=== PATIENT | female | born 1965 | race Caucasian/White ===

== ENCOUNTER 2019-10-09 04:22 | Emergency (ER) | payer OTHER, SELFPAY ==
[2019-10-09 04:23] VITALS: BP 142/79; PULSE 96; RESP 18; TEMP 36.4; O2SAT 97; BMI 24.7
[2019-10-09] MEDS: Tetracaine 0.5% Ophthalmic Bottle 1 DRP LEFT EYE (04:45)
--- NOTE | 2019-10-09 04:55 | ED.VIS.GEN ---
History of Present Illness Chief Complaint: Eye Problem Narrative: 54-year-old female presents with concern for left eye pain. States that she was seen at [facility] yesterday and diagnosed with left corneal abrasion. The economics professor placed a contact lens over the eye. States that she has had worsening irritation this evening. States it is painful. Denies any acute change in vision, fever, chills. Past Medical History - Allergies and Home Meds Allergies/Adverse Reactions: Allergies cefuroxime [From Ceftin] Allergy (Verified 10/09/19 04:27) Anaphylaxis clarithromycin [From Biaxin] Allergy (Verified 10/09/19 04:27) Anaphylaxis Primary Care Physician: NOT,DEFINED [Primary Care Provider] - Past Medical History: None Surgical History: noncontributory Smoking Status: Current every day smoker Alcohol: None Drugs: None Review of Systems General: Denies: Chills, Fever, Sweats Eyes: Reports: - - left eye pain. Denies: Visual changes - bilaterally, Diplopia ENT: Denies: Rhinorrhea, Sore throat Cardiovascular: Denies: Chest pain, Palpitations Respiratory: Denies: Dyspnea, Cough, Dyspnea on exertion Gastrointestinal: Denies: Abdominal pain, Nausea, Vomiting, Diarrhea, Melena, Hematochezia Genitourinary: Denies: Dysuria, Hematuria, Frequency Musculoskeletal: Denies: Back pain, Extremity Pain Skin: Denies: Rash, Wounds Neurological: Denies: Headache, Weakness, Numbness Physical Exam Vital Signs/Narrative: Vital Signs Temp Pulse Resp BP Pulse Ox 10/09/19 04:23 97.6 F L 96 18 142/79 H 97 Inital Vital Signs reviewed: Yes General: Well nourished, Well developed, No Acute Distress Head: Normocephalic, Atraumatic Eyes: Perrl, EOMI, - - Conjunctivo-very erythematous. Does appear to be possible lens in place. Cannot visualize the outer edge. ENT: Moist mucous membranes, No rhinorrhea Neck: Supple, Nontender Cardiovascular: Regular rate, Regular rhythm, No murmurs Respiratory: No distress, CTA bilaterally, Chest nontender Abdomen: Soft, Nontender, Nondistended, Normal bowel sounds Back: Nontender, Normal Inspection Extremities: Nontender, No edema Skin: Normal color, No rash Neurological: Alert, Oriented x3, Cranial nerves II-XII grossly intact, Normal Strength, Normal Sensation Psychological: Normal affect, Normal Mood Diagnostic/Tx/Re-eval - Medical Decision Making Appears well and nontoxic. Vital signs within normal limits. I examined with the slit lamp. Cannot identify outer edge. Patient was given tetracaine drops which did resolve her pain. Wet Q-tip was used to try to remove the lens. Unsuccessful. Concerned given inability to visualize the edge of the lens that I do not want to continue with more invasive attempts at removal. Fluorescein was placed but there was not significant uptake given the lens. Patient will be given the tetracaine to use for the next 2 hours given she has an appointment early this morning. Advised on very minimal use. Asked to return for any new or worsening symptoms. Patient agreeable and discharged home in stable condition. ED Disposition - Plan for ED Patient: Disposition: Home or Assisted Living Diagnosis: Corneal abrasion Instructions: Corneal Injury Additional Instructions: Please go to appointment at [facility] at [phone].
== END 2019-10-09 05:24 | disposition home or self-care (01) ==
PROVIDERS: Emergency Provider Emergency Medicine
DX: S05.02XA Injury of conjunctiva and corneal abrasion without foreign body, left eye, initial encounter (principal); X58.XXXA Exposure to other specified factors, initial encounter; Y93.9 Activity, unspecified; Y92.9 Unspecified place or not applicable; F17.200 Nicotine dependence, unspecified, uncomplicated
CPT/HCPCS: 99282; A4216

== ENCOUNTER → 2019-10-27 | Outpatient (CLI) | payer OTHER, SELFPAY ==
[2019-10-09 04:23] VITALS: BMI 24.7
== END | disposition home or self-care (01) ==
LOC: LABSPEC 10-28 08:29
PROVIDERS: Referring Provider Surgery; Visit Provider Surgery
DX: E04.1 Nontoxic single thyroid nodule (principal)

== ENCOUNTER → 2019-10-28 | Outpatient (CLI) | payer OTHER, SELFPAY ==
[2019-10-09 04:23] VITALS: BMI 24.7
--- NOTE | 2019-10-27 | FLU_PTH ---
PATIENT: NACHO PENGCCVenkatesh #:[id number] LOC: [facility]#:[id number] AGE/SX: 54/F ROOM: RE10/28/[address]: Dr. Sade Mariano MD : [id number] BED: DIS: 10/28/2019 SPEC #: [id number] RECD: 10/28/19 14:58 STATUS: NAVI MARCIA #: [id number] BILLIE: 10/27/19 00:[address]: Sade Mariano DEPT: CYTOLOGY RECD BY: Joce Sadler ENTERED: 10/28/19 14:58 SP TYPE: Fluid OTHR DR: No Primary Care Phys Tissues: A - Thyroid gland, NOS B - Thyroid gland, NOS Procedures: Special Stain Group II Surgery Specimen Level IV Cytospin Fluid HEADER OPERATION: Left thyroid FNA PRE-OP DIAGNOSIS: Left thyroid nodule TISSUE SUBMITTED: A - Left thyroid FNA for cytology, B - Left thyroid FNA slides x6 DIAGNOSIS CYTOLOGY A. Fine needle aspiration, left thyroid nodule (cytospin and cell block): Adequate for evaluation. Negative, consistent with benign follicular nodule. B. Fine needle aspiration, left thyroid nodule (smears): Adequate for evaluation. Negative, consistent with benign follicular/colloid nodule. AM:shima 10/29/19 CYTOLOGY STUDY Slides are reviewed. CYTOLOGY GROSS A - Received is 15 ml of brown cloudy fluid labeled with the patient's name and and designated per the requisition as left thyroid. Submitted for cytology preparation including cell block. B - Received are six smears labeled with the patient's name and designated per the requisition as left thyroid. Submitted for staining. / shima 10/28/19 TC:5 CPT: 74784, 27510, 70631
== END | disposition home or self-care (01) ==
LOC: LABSPEC 14:49
PROVIDERS: Visit Provider Surgery
DX: E04.1 Nontoxic single thyroid nodule (principal)
CPT/HCPCS: 88108; 88305; 88313